=== PATIENT | female | born 1960 | race African-American/Black ===

== ENCOUNTER → 2017-04-01 | Outpatient (CLI) | payer MEDICARE, MEDICAID ==
--- NOTE | 2017-04-01 15:11 | WOMENS IMAGING REPORT ---
EXAM DESCRIPTION: BILAT SCREENING MAMMO W/CAD COMPLETED DATE/TIME: 04/01/2017 9:46 am REASON FOR STUDY: SCREENING MAMMO Z12.31 ENCNTR SCREEN MAMMOGRAM FOR MALIGNANT NEOPLASM OF MICHELLE COMPARISON: Multiple since 2008 TECHNIQUE: Standard craniocaudal and mediolateral oblique views of each breast recorded using digita l acquisition. LIMITATIONS: None. FINDINGS: Findings present which are benign by mammographic criteria. No suspicious masses, calcifi cations or architectural distortion. Pertinent benign findings: Since the prior mammograms here in 2013, patient has undergone bilateral b reast reduction surgery. There are postoperative changes bilaterally with multiple dystrophic calcif ications from fat necrosis. Read with the assistance of CAD. .[facility] - R2 Cenova Version 1.3 .[facility] Imaging - R2 Cenova Version 1.3 .[facility] - R2 Cenova Version 2.4 .[facility] - R2 Cenova Version 2.4 .[facility] - R2 Portable Router Operator Version 9.2 Benign mammographic findings may include one or more of the following: Smooth masses, popcorn/rim/co arse calcifications, asymmetries, post-procedure changes, and lesions with long-standing stability. IMPRESSION: BENIGN MAMMOGRAPHIC FINDINGS. BIRADS 2 BREAST DENSITY: c. The breasts are heterogeneously dense, which may obscure small masses. BIRAD: 2 BENIGN FINDING(S) RECOMMENDATION: ROUTINE SCREENING Please consider bilateral screening tomosynthesis in March 2018 given heterogeneously dense tissu e. COMMENT: The patient has been notified of the results by letter per SA requirements. Additional no tification policies are in place for contacting patient with suspicious or incomplete findings. Quality ID #[id number]: The [employer] recommends an annual screening mammogram for women aged 40 years or over. This facility utilizes a reminder system to ensure that all patients receive reminder letters, and/or direct phone calls for appointments. This includes reminders for routine scr eening mammograms, diagnostic mammograms, or other Breast Imaging Interventions when appropriate. Th is patient will be placed in the appropriate reminder system. The [employer] (ACR) has developed recommendations for screening MRI of the breast s in certain patient populations, to be used in conjunction with mammography. Breast MRI surveillanc e may be appropriate for women with more than 20% lifetime risk of developing breast cancer as deter mined by genetic testing, significant family history of the disease, or history of mantle radiation f or Hodgkins Disease. ACR Practice Guidelines 2008. TECHNICAL DOCUMENTATION: FINDING NUMBER: (1) ASSESSMENT: (1) JOB ID: [id number] [employer]- All Rights Reserved
== END ==
LOC: WI 09:29
PROVIDERS: ATTEND Family Medicine
DX: Z12.31 Encounter for screening mammogram for malignant neoplasm of breast (principal)
CPT/HCPCS: 77067; G0202

== ENCOUNTER 2017-06-20 10:35 | Emergency (ER) | payer MEDICARE, MEDICAID ==
--- NOTE | 2017-06-20 11:27 | ER Document Report ---
ED Medical Screen (RME) - General Chief Complaint: Leg Pain Stated Complaint: ABDOMINAL PAIN Time Seen by Provider: 06/20/17 11:25 Notes: Approximately 3 days ago patient had her eighth cardiac stent placed. She went to her doctor, Dr. Jones, today with chest pain as well as right leg paresthesias and tightness. Dr. Jones referred the patient to the emergency department for further evaluation and ultrasound of lower extremity. TRAVEL OUTSIDE OF THE [place] IN LAST 30 DAYS: No - Related Data Allergies/Adverse Reactions: Sulfa (Sulfonamide Antibiotics) Allergy (Verified 06/20/17 11:12) Home Medications: Current Home Medications Atorvastatin Calcium 40 mg PO DAILY 06/20/17 [History] Cyclobenzaprine HCl 1 tab PO DAILY 06/20/17 [History] Ibuprofen 1 tab PO DAILY 06/20/17 [History] Isosorbide Mononitrate [Isosorbide Mononitrate ER] 1 tab PO DAILY 06/20/17 [ History] Linaclotide [Linzess] 1 cap PO DAILY 06/20/17 [History] Lisinopril [Prinivil 5 mg Tablet] 1 tab PO DAILY 06/20/17 [History] Metoprolol Succinate 1 tab PO DAILY 06/20/17 [History] Nitroglycerin [Nitroglycerin] 1 tab SL TID PRN 06/20/17 [History] Pantoprazole Sodium 1 tab PO DAILY 06/20/17 [History] Ranolazine [Ranexa 500 mg Tab.sr] 1 tab PO DAILY 06/20/17 [History] Trazodone HCl 1 tab PO DAILY 06/20/17 [History] Past Medical History - Past Medical History Cardiac Medical History: Reports: Hx Heart Attack - 1983, Hx Hypercholesterolemia, Hx Hypertension Pulmonary Medical History: Reports: Hx Asthma Denies: Hx Tuberculosis GI Medical History: Reports: Hx Gastroesophageal Reflux Disease Musculoskeltal Medical History: Reports Hx Arthritis Psychiatric Medical History: Reports: Hx Depression Past Surgical History: Reports: Hx Abdominal Surgery - intestinal, Hx Section, Hx Cholecystectomy, Hx Tubal Ligation. Denies: Hx Pacemaker - Immunizations Hx Diphtheria, Pertussis, Tetanus Vaccination: Yes Physical Exam - Vital signs Vitals: Temp Pulse Resp BP Pulse Ox 98.6 F 65 15 141/60 H 97 06/20/17 10:43 06/20/17 10:43 06/20/17 10:43 06/20/17 10:43 06/20/17 10:43 Course - Vital Signs Vital signs: Temp Pulse Resp BP Pulse Ox 98.6 F 65 15 141/60 H 97 06/20/17 10:43 06/20/17 10:43 06/20/17 10:43 06/20/17 10:43 06/20/17 10:43
[2017-06-20 12:22] LABS: ABSOLUTE BASOPHILS # (AUTO) 0.1 10^3/uL (0.0-0.2); ABSOLUTE EOSINOPHILS # (AUTO) 0.1 10^3/uL (0.0-0.6); ABSOLUTE LYMPHOCYTES (AUTO) 1.4 10^3/uL (0.5-4.7); ABSOLUTE MONOCYTES (AUTO) 0.4 10^3/uL (0.1-1.4); ABSOLUTE NEUT (AUTO) 2.6 10^3/uL (1.7-8.2); BASOPHILS % (AUTO) 1.3 % (0-2); EOSINOPHILS % (AUTO) 2.3 % (0-6); HEMATOCRIT 35.5 % (36.0-47.0); HGB HCT DIFFERENCE 0.5; LYMPHOCYTES % (AUTO) 31.1 % (13-45); MEAN CORPUSCULAR HEMOGLOBIN 31.4 pg (27.0-33.4); MEAN CORPUSCULAR HGB CONC 33.9 g/dL (32.0-36.0); MEAN CORPUSCULAR VOLUME 93 fl (80-97); MONOCYTES % (AUTO) 7.9 % (3-13); RED BLOOD COUNT 3.84 10^6/uL (3.72-5.28); RED CELL DISTRIBUTION WIDTH 14.2 % (11.5-14.0); SEGMENTED NEUTROPHILS % (AUTO) 57.4 % (42-78); WHITE BLOOD COUNT 4.5 10^3/uL (4.0-10.5)
[2017-06-20 12:42] LABS: ALANINE AMINOTRANSFERASE 27 U/L (9-52); ALBUMIN 4.5 g/dL (3.5-5.0); ALKALINE PHOSPHATASE 104 U/L (38-126); ANION GAP 12 (5-19); ASPARTATE AMINO TRANSFERASE 22 U/L (14-36); BILIRUBIN,DIRECT 0.1 mg/dL (0.0-0.4); BILIRUBIN,TOTAL 0.5 mg/dL (0.2-1.3); BLOOD UREA NITROGEN 10 mg/dL (7-20); CALCIUM 9.6 mg/dL (8.4-10.2); CARBON DIOXIDE 29 mmol/L (22-30); CHLORIDE 105 mmol/L (98-107); CREATININE RESULT 0.85 mg/dL (0.52-1.25); GLUCOSE 88 mg/dL (75-110); POTASSIUM 4.2 mmol/L (3.6-5.0); SODIUM 146.4 mmol/L (137-145)
--- NOTE | 2017-06-20 13:02 | EKG REPORT ---
SEVERITY:- ABNORMAL ECG - SINUS RHYTHM FIRST DEGREE AV BLOCK : Confirmed by: Wing Scott MD 20-Jun-2017 13:01:35
[2017-06-20 14:41] LABS: PROTHROMBIN TIME 13.5 SEC (11.4-15.4)
--- NOTE | 2017-06-20 15:02 | RADIOLOGY REPORT (SQ) ---
EXAM DESCRIPTION: CHEST PA/LAT COMPLETED DATE/TIME: 06/20/2017 2:37 pm REASON FOR STUDY: chest pain COMPARISON: 04/25/2014 EXAM PARAMETERS: NUMBER OF VIEWS: two views TECHNIQUE: Digital Frontal and Lateral radiographic views of the chest acquired. RADIATION DOSE: NA LIMITATIONS: none FINDINGS: LUNGS AND PLEURA: No opacities, masses or pneumothorax. No pleural effusion. MEDIASTINUM AND HILAR STRUCTURES: No masses or contour abnormalities. HEART AND VASCULAR STRUCTURES: Heart normal size. No evidence for failure. BONES: No acute findings. HARDWARE: None in the chest. OTHER: No other significant finding. IMPRESSION: NO SIGNIFICANT RADIOGRAPHIC FINDING IN THE CHEST. TECHNICAL DOCUMENTATION: JOB ID: [id number] [employer]- All Rights Reserved
--- NOTE | 2017-06-20 15:24 | ER Document Report ---
ED General - General Chief Complaint: Leg Pain Stated Complaint: ABDOMINAL PAIN Time Seen by Provider: 06/20/17 11:25 Mode of Arrival: Ambulatory Information source: Patient, Relative TRAVEL OUTSIDE OF THE [place] IN LAST 30 DAYS: No - HPI Patient complains to provider of: Multiple complaints including right leg is cold, left chest pain, sob Onset: Other - Since the stent was placed Tuesday at [facility] Onset/Duration: Constant Quality of pain: Dull Severity: Moderate Associated symptoms: Chest pain, Headache, Shortness of breath. denies: Body/ muscle aches, Chills, Nonproductive cough, Productive cough, Diarrhea, Drooling , Fever, Hurts to breath, Nausea, Vomiting Exacerbated by: Movement Relieved by: Remaining still Similar symptoms previously: No Recently seen / treated by doctor: No Notes: 56-year-old -Stateless female presents the emergency department sent over from [facility] [place]. Due to the patient she had went in for an EP study at [facility] on Tuesday and ended up with a cardiac catheterization as well as a stent placed placement. Patient states she has not really sure exactly what happens as she does not know where the stent was placed. Patient states Tuesday a.m. at 5:00 she left AMA without paperwork. She has not taken any medication since then because she did not know what she was supposed to be on. Prior to going into [facility] patient was on 14 medications including lisinopril Nitrostat metoprolol Ranexa and atorvastatin. Patient states shortly after the stent placement she developed left shoulder and chest pain that feels like pressure. She is short of breath with exertion. She also states that her right lower extremity feels cold. It is not heavy or numb. She has no right low back pain. Patient currently and since stent placement has not taken any of her medications. - Related Data Allergies/Adverse Reactions: Sulfa (Sulfonamide Antibiotics) Allergy (Verified 06/20/17 11:12) Dye used in chemical stress test Allergy (Uncoded 06/20/17 13:00) Home Medications: Current Home Medications Atorvastatin Calcium 40 mg PO DAILY 06/20/17 [History] Cyclobenzaprine HCl 1 tab PO DAILY 06/20/17 [History] Ibuprofen 1 tab PO DAILY 06/20/17 [History] Isosorbide Mononitrate [Isosorbide Mononitrate ER] 1 tab PO DAILY 06/20/17 [ History] Linaclotide [Linzess] 1 cap PO DAILY 06/20/17 [History] Lisinopril [Prinivil 5 mg Tablet] 1 tab PO DAILY 06/20/17 [History] Metoprolol Succinate 1 tab PO DAILY 06/20/17 [History] Nitroglycerin [Nitroglycerin] 1 tab SL TID PRN 06/20/17 [History] Pantoprazole Sodium 1 tab PO DAILY 06/20/17 [History] Ranolazine [Ranexa 500 mg Tab.sr] 1 tab PO DAILY 06/20/17 [History] Trazodone HCl 1 tab PO DAILY 06/20/17 [History] Past Medical History - General Information source: Patient, Relative - Social History Smoking Status: Current Some Day Smoker Cigarette use (# per day): Yes Chew tobacco use (# tins/day): No Smoking Education Provided: Yes Frequency of alcohol use: Occasional Drug Abuse: None Lives with: Family Family History: DM, Hypertension, Other - Sulfa allergy Patient has suicidal ideation: No Patient has homicidal ideation: No - Past Medical History Cardiac Medical History: Reports: Hx Heart Attack - 1983, Hx Hypercholesterolemia, Hx Hypertension Pulmonary Medical History: Reports: Hx Asthma Denies: Hx Tuberculosis EENT Medical History: Reports: None Neurological Medical History: Reports: None Endocrine Medical History: Reports: None Renal/ Medical History: Reports: None. Denies: Hx Peritoneal Dialysis Malignancy Medical History: Reports: None GI Medical History: Reports: Hx Gastroesophageal Reflux Disease Musculoskeltal Medical History: Reports Hx Arthritis Psychiatric Medical History: Reports: Hx Depression Past Surgical History: Reports: Hx Abdominal Surgery - intestinal, Hx Section, Hx Cholecystectomy, Hx Tubal Ligation. Denies: Hx Pacemaker - Immunizations Hx Diphtheria, Pertussis, Tetanus Vaccination: Yes History of Influenza Vaccine for 04/2017 - 09/2017 Season: No Hx Pneumococcal Vaccination: 07/04/10 Review of Systems - Review of Systems Constitutional: No symptoms reported EENT: No symptoms reported Cardiovascular: See HPI Respiratory: See HPI Gastrointestinal: No symptoms reported Genitourinary: No symptoms reported Female Genitourinary: No symptoms reported Musculoskeletal: No symptoms reported Skin: See HPI Hematologic/Lymphatic: No symptoms reported Neurological/Psychological: No symptoms reported Physical Exam - Vital signs Vitals: Temp Pulse Resp BP Pulse Ox 98.6 F 65 15 141/60 H 97 06/20/17 10:43 06/20/17 10:43 06/20/17 10:43 06/20/17 10:43 06/20/17 10:43 - Notes Notes: PHYSICAL EXAMINATION: GENERAL: Well-appearing, well-nourished and in no acute distress. HEAD: Atraumatic, normocephalic. EYES: Pupils equal round and reactive to light, extraocular movements intact, conjunctiva are normal. ENT: Nares patent, oropharynx clear without exudates. Moist mucous membranes. NECK: Normal range of motion, supple without lymphadenopathy LUNGS: Breath sounds clear to auscultation bilaterally and equal. No wheezes rales or rhonchi. HEART: Regular rate and rhythm ABDOMEN: Soft, nontender, nondistended abdomen. No guarding, no rebound. No masses appreciated. Female : deferred Musculoskeletal: Normal range of motion, no pitting or edema. No cyanosis. +2 femoral pulses bilaterally. Lower extremity is mildly colds but is the same temperature as the left lower extremity. 5/5 strength bilateral lower extremities. No calf tenderness bilaterally. NEUROLOGICAL: Cranial nerves grossly intact. Normal speech, normal gait. Normal sensory, motor exams. PSYCH: Normal mood, normal affect. SKIN: Warm, Dry, normal turgor, no rashes or lesions noted. Course - Re-evaluation Re-evalutation: 06/20/17 17:48 I am still awaiting paperwork from [facility] regarding patient's discharge status post stent. I faxed paperwork twice requesting this. 06/20/17 18:25 I did go into the talked with the patient and her family. I reviewed all the illogical results. I did tell her we are still trying to get in touch with [facility]. They are starting to fax this information. My plan is to review the information they send me. If it does not have any discharge medications on it, I will call the cardiology team who performed a stent placement to find out with the patient was supposed to be discharged home on. Patient states she is starving I did put in for a food tray on her. Right lower extremity continues to be warm and neurovascularly intact. I did tell the patient that she had no blood clot in that right lower extremity. I also told her that clinical exam was not consistent with an arterial blockage. I did tell her that this is a risk status post cardiac catheterization and if her legs were to turn cold, become painful, change color or any other concerns she is to return to the emergency department immediately. 06/20/17 18:51 I did get the paperwork from [facility]. I brought it. It appears that the patient was supposed to be discharged on Plavix. She states that she did not get any discharge information nor any prescriptions. I did look at her medical list and [facility] I do not see where she was on Plavix. Also it states that [facility] discharged her Norvasc is not on her current medical list from [facility]. I did call [facility] they are closed and there is no further information to reach somebody business continuity coordinator. I told her I would write her for the Plavix but to make sure she was not on it already. If she was she is not to double the dose. I did tell her also that she would have to discuss Norvasc with her web specialist at [facility] because I do not see that she is currently on it. Patient is to take the discharge summary from [facility] that I gave her to [facility]. I told her make an appointment in the next 2 days. She is to return to the emergency department immediately if she gets coldness in her right leg, pain in the right leg, change in color or any other concerns. Multiple sons and daughters were in the room and I did go over it with them as well. All questions were answered. Patient left here in stable condition. She was given a Plavix before she left. 06/20/17 19:02 Patient had a right ostial stent placed 06/20/17 19:11 Patient's troponin is elevated at 0.3. I tried to find a troponin from [facility] however it is not in the transfer papers. I did put a call into Dr. Agosto the web specialist who did the interventional procedure. I am awaiting callback from his team. In the meantime I will repeat a troponin here just to make sure it is on a down trend and not increasing. Patient is aware and agreeable. 06/20/17 19:20 Dr. Agosto's partner from [facility] to call me back. He states that they did not do a troponin. Patient was taken for an elective cardiac cath and they found a blockage and placed a stent. He does agree that the troponin would be elevated after procedure. He agrees with repeating it and if it is trending down the patient be discharged home. 06/20/17 19:59 Repeated troponin did trend down. Patient will be discharged in stable condition. I did encourage her to follow-up with Dr. Agosto at [facility] as well as her doctor at [facility]. - Vital Signs Vital signs: Temp Pulse Resp BP Pulse Ox 98.6 F 65 11 L 148/61 H 93 06/20/17 10:43 06/20/17 10:43 06/20/17 19:07 06/20/17 19:07 06/20/17 19:07 - Laboratory Result Diagrams: 06/20/17 12:10 06/20/17 12:10 Laboratory results interpreted by me: 06/20/17 06/20/17 12:10 12:10 Hct 35.5 L RDW 14.2 H Sodium 146.4 H - Diagnostic Test Radiology reviewed: Image reviewed, Reports reviewed Radiology results interpreted by me: 06/20/17 15:27 No acute findings chest x-ray. No DVT ultrasound right lower extremity. 06/20/17 17:49 - EKG Interpretation by Ne EKG shows normal: Sinus rhythm Rate: Normal Rhythm: NSR Heart block present: 1st Degree When compared to previous EKG there are: No significant change Critical Care Note - Critical Care Note Total time excluding time spent on procedures (mins): 60 Comments: Please put critical care time is 60 minutes for reassessment of the patient, review of old medical records from [facility] including discharge summary, cardiac catheterization results and other information that was pertinent. I also called [facility] twice but there was no answer no forwarding number. Discussion with the family for 30 minutes in total regarding history taking, review of results, review of medical care at [facility], discharge plan including Plavix and answering all questions. Discharge - Discharge Clinical Impression: Medical non-compliance, Status post insertion of drug-eluting stent into right coronary artery for coronary artery disease, Chest pain Condition: Stable Disposition: HOME, SELF-CARE Instructions: Chest Pain of Unclear Cause ([facility]) Additional Instructions: Plesase follow up with dr. Agosto at [facility] as discussed. Discussed with your web specialist at [facility] the medication she should be taking at home. Continue Plavix 75 mg by mouth daily and discussed with Dr. Agosto at [facility] when this should be discontinued. Emergency department immediately if your right leg turns cold, you have pain in that leg, decreased strength or any other concerns. Prescriptions: Clopidogrel Bisulfate [Plavix 75 mg Tablet] 75 mg PO DAILY #30 tablet Referrals: [facility] [Provider Group] - Follow up tomorrow
--- NOTE | 2017-06-20 15:38 | XCELERA REPORT ---
[address] [address] Lower Extremity Venous Evaluation Name: HALLEY GALVAN Age: 56 yrs Gender: Female : 1960 Patient Status: Emergency Patient Location: ER Study Date: 06/20/2017 01:35 PM Procedure: Color flow and duplex imaging of the veins of the right lower extremity as well as the left Common Femoral vein. Reason For Study: right leg tightness, parathesisas, recent cath Ordering Physician: BRUNA FERNANDO Performed By: Honey Garsia Right Sided Venous Evaluation Venous reflux noted in the Greater Saphenous vein in the mid thigh. Otherwise normal vessel filling wall to wall, compression and augmentation as well as Colour flow down to the infrageniculate veins. Left Sided Venous Evaluation The left common femoral vein is fully compressible. Spontaneous and phasic flow is present in the left common femoral vein. Interpretation Summary No duplex evidence of DVT or obstruction in the right lower extremity nor in the left Common Femoral vein. Venous reflux as noted. : BRUNA FERNANDO > Alvin Figueroa
--- NOTE | 2017-06-20 16:20 | RADIOLOGY REPORT (SQ) ---
EXAM DESCRIPTION: CTA CHEST COMPLETED DATE/TIME: 06/20/2017 3:57 pm REASON FOR STUDY: Sob/cardiac stent 3 days ago/no anticoag COMPARISON: 04/25/2014 and 10/07/2011. TECHNIQUE: CT scan of the chest performed using helical scanning technique with dynamic intravenous contrast injection. Images reviewed with lung, soft tissue and bone windows. Reconstructed coronal and sagittal MPR images reviewed. Additional 3 dimensional post-processing performed to develop Maximal Intensity Projection images (PR P). All images stored on PACS. All CT scanners at this facility use dose modulation, iterative reconstruction, and/or weight based d osing when appropriate to reduce radiation dose to as low as reasonably achievable (ALARA). [facility]: Dose Right [facility]: CareDose [facility]: Dose Right [facility]: Teradose 4D [facility]: Mirror Digital CONTRAST TYPE AND DOSE: contrast/concentration: Isovue 370.00 mg/ml; Total Contrast Delivered: 77.0 ml; Total Saline Delivered: 75.0 ml Contrast bolus optimized for the pulmonary arteries. Not diagnostic for the aorta. RENAL FUNCTION: BUN 10 creatinine 0.85. RADIATION DOSE: CT Rad equipment meets quality standard of care and radiation dose reduction techniq ues were employed. CTDIvol: 22.0 - 33.1 mGy. DLP: 842 mGy-cm. . LIMITATIONS: None. FINDINGS: LUNGS AND PLEURA: 4 mm nodule in the right lung base (series 4, image 81) unchanged from p rior study. No masses, infiltrates, pneumothorax. No pleural effusions, calcifications. AORTA AND GREAT VESSELS: No aneurysm. Contrast bolus not optimized for the aorta. HEART: No pericardial effusion. No significant coronary artery calcifications. PULMONARY ARTERIES: No emboli visualized in the main pulmonary arteries or the segmental branches. HILAR AND MEDIASTINAL STRUCTURES: No identified masses or abnormal nodes. HARDWARE: None in the chest. UPPER ABDOMEN: No significant findings. Limited exam. THYROID AND OTHER SOFT TISSUES: No masses. No adenopathy. BONES: No acute or significant finding. 3D MIPS: Confirm above findings. OTHER: No other significant finding. IMPRESSION: NORMAL CTA OF THE CHEST. NO PULMONARY EMBOLI. 4 MM NODULE IN THE RIGHT LUNG BASE IS STABLE AND UNCHANGED SINCE OCTOBER 2011. NO OTHER SIGNIFICANT FI NDINGS. COMMENT: Quality ID # [id number]: Final reports with documentation of one or more dose reduction techniques (e.g., Automated exposure control, adjustment of the mA and/or kV according to patient size, use of iterative reconstruction technique) TECHNICAL DOCUMENTATION: JOB ID: [id number] [employer]- All Rights Reserved
[2017-06-20] MEDS ORDERED: CLOPIDOGREL BISULFATE 75 MG TABLET PO ONE (18:43)
[2017-06-20 20:12] VITALS: BP 123/81
== END 2017-06-20 20:12 | disposition home or self-care (01) ==
LOC: ER 10:35
DX: R07.89 Other chest pain (principal); M25.512 Pain in left shoulder; R06.02 Shortness of breath; R51 Headache; I44.0 Atrioventricular block, first degree; I25.2 Old myocardial infarction; I10 Essential (primary) hypertension; J45.909 Unspecified asthma, uncomplicated; F17.210 Nicotine dependence, cigarettes, uncomplicated; Z91.14 Patient's other noncompliance with medication regimen; Z95.5 Presence of coronary angioplasty implant and graft; Z88.2 Allergy status to sulfonamides; Z91.041 Radiographic dye allergy status
CPT/HCPCS: 93005; 99285; 36415; 85025; 85610; 80053; 84484; 93971 ×2; 71020; 71275; 93010; A9270

== ENCOUNTER 2017-09-12 20:47 | Emergency (ER) | payer MEDICARE, MEDICAID ==
[2017-09-12 22:18] LABS: ABSOLUTE EOSINOPHILS # (AUTO) 0.1 10^3/uL (0.0-0.6); ABSOLUTE LYMPHOCYTES (AUTO) 1.8 10^3/uL (0.5-4.7); ABSOLUTE MONOCYTES (AUTO) 0.5 10^3/uL (0.1-1.4); ABSOLUTE NEUT (AUTO) 3.6 10^3/uL (1.7-8.2); BASOPHILS % (AUTO) 0.6 % (0-2); EOSINOPHILS % (AUTO) 1.8 % (0-6); HEMATOCRIT 33.8 % (36.0-47.0); HEMOGLOBIN 11.1 g/dL (12.0-15.5); LYMPHOCYTES % (AUTO) 30.1 % (13-45); MEAN CORPUSCULAR HGB CONC 32.9 g/dL (32.0-36.0); MEAN CORPUSCULAR VOLUME 94 fl (80-97); MONOCYTES % (AUTO) 8.7 % (3-13); PLATELET COUNT 260 10^3/uL (150-450); RED BLOOD COUNT 3.58 10^6/uL (3.72-5.28); RED CELL DISTRIBUTION WIDTH 14.4 % (11.5-14.0); SEGMENTED NEUTROPHILS % (AUTO) 58.8 % (42-78); TOTAL CELLS COUNTED % (AUTO) 100 %; WHITE BLOOD COUNT 6.1 10^3/uL (4.0-10.5)
[2017-09-12 22:31] LABS: ALANINE AMINOTRANSFERASE 24 U/L (9-52); ALBUMIN 4.4 g/dL (3.5-5.0); ALKALINE PHOSPHATASE 106 U/L (38-126); ANION GAP 10 (5-19); ASPARTATE AMINO TRANSFERASE 19 U/L (14-36); BILIRUBIN,DIRECT 0.2 mg/dL (0.0-0.4); BILIRUBIN,TOTAL 0.2 mg/dL (0.2-1.3); BLOOD UREA NITROGEN 13 mg/dL (7-20); CALCIUM 9.4 mg/dL (8.4-10.2); CARBON DIOXIDE 28 mmol/L (22-30); CHLORIDE 105 mmol/L (98-107); GLUCOSE 99 mg/dL (75-110); POTASSIUM 4.1 mmol/L (3.6-5.0); SODIUM 143.3 mmol/L (137-145); TOTAL PROTEIN 7.6 g/dL (6.3-8.2)
[2017-09-12 22:41] LABS: CREATINE KINASE MB 0.35 ng/mL (<4.55)
[2017-09-12 22:44] LABS: TROPONIN I < 0.012 ng/mL
--- NOTE | 2017-09-12 23:27 | RADIOLOGY REPORT (SQ) ---
EXAM DESCRIPTION: CHEST PA/LAT CLINICAL HISTORY: 56 years, Female, chest pain COMPARISON: 12.18.17 NUMBER OF VIEWS: 2 LIMITATIONS: None. FINDINGS: Normal lung volume, clear parenchyma, normal cardiac silhouette, and intact bony thorax. Clips of the left upper abdominal quadrant. IMPRESSION: No acute cardiopulmonary findings.
[2017-09-13] MEDS ORDERED: FENTANYL CITRATE INJ/PF 100 MCG/2 ML AMPUL IV ONE (00:44)
[2017-09-13] MEDS ORDERED: ONDANSETRON HCL INJ/PF 4 MG/2 ML SDV IV ONE (00:44)
--- NOTE | 2017-09-13 00:44 | ER Document Report ---
ED General - General Chief Complaint: Epigastric Pain Stated Complaint: ABDOMNAL PAIN Time Seen by Provider: 09/13/17 00:33 Notes: Patient is a 56-year-old female who comes emergency department for chief complaint of pain in her upper abdomen for the past 3 days. She states she feels bloated, she states she feels like every time she eats she gets bigger, she states that the pain has become sharp and very painful. She denies nausea or vomiting. She has had 2 bowel movements within the past 24 hours, nonbloody. She states she was supposed to get a CAT scan evaluation recently but this was postponed. She has had 75% of her large intestine removed reportedly, this was because of bowel obstructions. She denies fever or chills , pain in her chest, shortness of breath. Other medical history includes CAD with stents, on aspirin and Plavix. She also takes Linzess and lactulose, sees gastroenterology Dr. Bush. TRAVEL OUTSIDE OF THE [place] IN LAST 30 DAYS: No - Related Data Allergies/Adverse Reactions: Sulfa (Sulfonamide Antibiotics) Allergy (Verified 06/20/17 11:12) Dye used in chemical stress test Allergy (Uncoded 06/20/17 13:00) Past Medical History - General Information source: Patient - Social History Smoking Status: Current Some Day Smoker Chew tobacco use (# tins/day): No Frequency of alcohol use: None Drug Abuse: None Lives with: Family Family History: DM, Hypertension, Other - Sulfa allergy Patient has suicidal ideation: No Patient has homicidal ideation: No - Past Medical History Cardiac Medical History: Reports: Hx Heart Attack - 1983, Hx Hypercholesterolemia, Hx Hypertension Pulmonary Medical History: Reports: Hx Asthma Denies: Hx Tuberculosis Renal/ Medical History: Denies: Hx Peritoneal Dialysis GI Medical History: Reports: Hx Gastroesophageal Reflux Disease Musculoskeltal Medical History: Reports Hx Arthritis Psychiatric Medical History: Reports: Hx Depression Past Surgical History: Reports: Hx Abdominal Surgery - intestinal, Hx Section, Hx Cholecystectomy, Hx Tubal Ligation. Denies: Hx Pacemaker - Immunizations Hx Diphtheria, Pertussis, Tetanus Vaccination: Yes Hx Pneumococcal Vaccination: 07/04/10 Review of Systems - Review of Systems Constitutional: No symptoms reported EENT: No symptoms reported Cardiovascular: No symptoms reported Respiratory: No symptoms reported Gastrointestinal: See HPI Genitourinary: No symptoms reported Female Genitourinary: No symptoms reported Musculoskeletal: No symptoms reported Skin: No symptoms reported Hematologic/Lymphatic: No symptoms reported Neurological/Psychological: No symptoms reported Physical Exam - Vital signs Vitals: Temp Pulse Resp BP Pulse Ox 98.4 F 73 17 141/62 H 100 09/12/17 20:54 09/12/17 20:54 09/12/17 20:54 09/12/17 20:54 09/12/17 20:54 - General General appearance: Appears well In distress: None - HEENT Head: Normocephalic, Atraumatic Eyes: Normal Conjunctiva: Normal Extraocular movements intact: Yes Eyelashes: Normal Pupils: PERRL Mouth/Lips: Normal Mucous membranes: Normal Pharynx: Normal Neck: Normal - Respiratory Respiratory status: No respiratory distress Breath sounds: Normal. No: Decreased air movement, Wheezing - Cardiovascular Rhythm: Regular. No: Tachycardia Heart sounds: Normal auscultation, S1 appreciated, S2 appreciated Murmur: No Normal capillary refill: Yes - Abdominal Distension: Distended Tenderness: Tender - Generalized mild abdominal tenderness, nonspecific, no guarding - Back Back: Normal, Nontender. No: Tender - Extremities General upper extremity: Normal inspection, Nontender, Normal strength, Normal temperature General lower extremity: Normal inspection, Nontender, Normal strength, Normal temperature. 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 She is complaining of pain but she does not appear to be in distress. No tachycardia, hypoxia, hypotension, or fever. CBC does not show leukocytosis, chemistry, lipase, urine are unremarkable. Troponin is not elevated. Discussed with patient. She states she is still having pain, because of multiple abdominal surgeries, her missing a CAT scan she was supposed to have, patient will be evaluated with a CAT scan with oral and IV contrast. CAT scan does not show any acute abnormalities, findings were discussed with patient. Patient still complaining of bloating and pain, per my read she does have stool coming from the rectum all the way up into the colon with some moderate retention. After discussion patient wanting to have to an enema. Enema was performed, patient actually had excellent results with large amount of stool, decreased distention and discomfort. Patient states is ready to go home. Discussed follow-up, discussed return precautions, patient states understanding and agreement. - Vital Signs Vital signs: Temp Pulse Resp BP Pulse Ox 97.9 F 73 18 142/72 H 99 09/13/17 05:01 09/12/17 20:54 09/13/17 04:01 09/13/17 04:01 09/13/17 04:01 - Laboratory Result Diagrams: 09/12/17 22:00 09/12/17 22:00 Laboratory results interpreted by me: 09/12/17 22:00 RBC 3.58 L Hgb 11.1 L Hct 33.8 L RDW 14.4 H Discharge - Discharge Clinical Impression: Abdominal pain Qualifiers: Abdominal location: generalized Qualified Code(s): R10.84 - Generalized abdominal pain Condition: Stable Disposition: HOME, SELF-CARE Additional Instructions: Your workup does not show any concerning abnormalities. CAT scan shows adhesions, retained stool, no obvious concerning abnormalities. Follow-up with your cable systems installer for additional evaluation and management. Return if you worsen including vomiting, fever, returned or severe pain, bloody bowel movements, or any other concerning symptoms. Forms: Treatment of Relative/Child Referrals: HARRIETT RICK MD [Primary Care Provider] - Follow up as needed
--- NOTE | 2017-09-13 03:15 | RADIOLOGY REPORT (SQ) ---
EXAM DESCRIPTION: CT ABD/PELVIS WITH IV ORAL CLINICAL HISTORY: 56 years Female, sharp mid abd pain, hx bowel surgery COMPARISON: 04/25/2014. CT chest 06/20/2017 TECHNIQUE: 100 mL Isovue-370 IV and oral contrast. Coronal and sagittal reformat. This exam was performed according to our departmental dose-optimization program, which includes automated exposure control, adjustment of the mA and/or kV according to patient size and/or use of iterative reconstruction technique. FINDINGS: No acute findings. No free fluid. Bowel is closely positioned with anterior peritoneum, a nonspecific finding; cannot also be associated with adhesive disease. Left upper abdominal clips. Mild disc desiccation. 0.3 cm degenerative L4 anterolisthesis. Moderate L4-L5 spondylosis. Coronary artery calcification-stenting. Stable 0.9 cm prominent midabdominal mesenteric lymph node. Inferior thorax, liver, gallbladder, pancreas, spleen, adrenals, renal system, gastrointestinal tract, pelvic organs, lymphatics, vasculature, and musculoskeleton appear otherwise unremarkable. IMPRESSION: No acute findings.
[2017-09-13] MEDS ORDERED: MINERAL OIL 30 ML UDCUP PR ONE (03:42)
[2017-09-13 05:01] VITALS: BP 142/72
--- NOTE | 2017-09-13 07:27 | EKG REPORT ---
SEVERITY:- ABNORMAL ECG - SINUS RHYTHM FIRST DEGREE AV BLOCK : Confirmed by: Wing Scott MD 13-Sep-2017 07:26:57
== END 2017-09-13 05:02 | disposition home or self-care (01) ==
LOC: ER 20:47
DX: R10.84 Generalized abdominal pain (principal); R10.13 Epigastric pain; R10.10 Upper abdominal pain, unspecified; R14.0 Abdominal distension (gaseous); I25.10 Atherosclerotic heart disease of native coronary artery without angina pectoris; I25.2 Old myocardial infarction; E78.00 Pure hypercholesterolemia, unspecified; I10 Essential (primary) hypertension; Z79.02 Long term (current) use of antithrombotics/antiplatelets; Z90.49 Acquired absence of other specified parts of digestive tract; Z79.899 Other long term (current) drug therapy; F17.200 Nicotine dependence, unspecified, uncomplicated
CPT/HCPCS: 93005; 99285; 96374; 96375; 36415; 82553; 83690; 85025; 80053; 84484; 71046; 74177; 93010; J3010; J3490; J2405

== ENCOUNTER → 2017-09-26 | Outpatient (CLI) | payer MEDICARE, MEDICAID ==
--- NOTE | 2017-09-26 12:40 | RADIOLOGY REPORT (SQ) ---
EXAM DESCRIPTION: U/S THYROID/SFT TISS HD NECK COMPLETED DATE/TIME: 09/26/2017 10:43 am REASON FOR STUDY: ABN RESULTS OF THYROID FUNCTION TEST R94.6 ABNORMAL RESULTS OF THYROID FUNCTION S TUDIES COMPARISON: None. TECHNIQUE: Dynamic and static berg-scale images acquired of the thyroid gland. Selected additional c olor/power Doppler images recorded. All images stored to PACS. LIMITATIONS: None. FINDINGS: RIGHT LOBE: Normal size. Homogeneous echotexture. 7 mm hypoechoic nodule. LEFT LOBE: Normal size. Homogeneous echotexture. No cystic or solid masses. ISTHMUS: Normal size. Homogeneous echotexture. No cystic or solid masses. OTHER: No other significant finding. IMPRESSION: 7 mm solid nodule right lobe. TECHNICAL DOCUMENTATION: JOB ID: [id number] [employer]- All Rights Reserved Reading location - IP/workstation name: [email or web address]
== END ==
LOC: RAD 09:31
PROVIDERS: ATTEND Physician Assistant
DX: E04.1 Nontoxic single thyroid nodule (principal); R94.6 Abnormal results of thyroid function studies
CPT/HCPCS: 76536

== ENCOUNTER → 2017-10-31 | Outpatient (CLI) | payer MEDICARE, MEDICAID ==
--- NOTE | 2017-10-31 12:56 | WOMENS IMAGING REPORT ---
EXAM DESCRIPTION: U/S ABDOMEN TOTAL COMPLETED DATE/TIME: 10/31/2017 11:32 am REASON FOR STUDY: EPIGASTRIC PAIN, ABDOMINAL DISTENSION R10.13 EPIGASTRIC PAIN R14.0 ABDOMINAL DIS TENSION (GASEOUS) COMPARISON: None. TECHNIQUE: Dynamic and static grayscale images acquired of the abdomen and recorded on PACS. Sinano oswaldo selected color Doppler and spectral images recorded. LIMITATIONS: None. FINDINGS: PANCREAS: No masses. Visualized pancreatic duct normal caliber. The tail was not well see n. LIVER: 14.3 cm. Normal echotexture. LIVER VASCULATURE: Normal directional flow of the main portal vein and hepatic veins. GALLBLADDER: No stones. Normal wall thickness. No pericholecystic fluid. ULTRASOUND-DETECTED THRASHER'S SIGN: Negative. INTRAHEPATIC DUCTS AND COMMON DUCT: CBD and intrahepatic ducts normal caliber. No filling defects. INFERIOR VENA CAVA: Normal flow. AORTA: Poorly seen. The midportion of the aorta is normal. RIGHT KIDNEY: Normal size, 9.5 cm. Normal echogenicity. No solid or suspicious masses. No hydr onephrosis. No calcifications. LEFT KIDNEY: Normal size, 10.8 cm. Normal echogenicity. No solid or suspicious masses. No hydr onephrosis. No calcifications. SPLEEN: Normal size, 11 cm. No solid masses. PERITONEAL AND PLEURAL SPACES: No ascites or effusions. OTHER: No other significant finding. IMPRESSION: NORMAL ABDOMINAL ULTRASOUND. TECHNICAL DOCUMENTATION: JOB ID: [id number] [employer]- All Rights Reserved Reading location - IP/workstation name: [email or web address]
== END ==
LOC: WI 08:26
PROVIDERS: ATTEND Internal Medicine Gastroenterology
DX: R10.13 Epigastric pain (principal); R14.0 Abdominal distension (gaseous)
CPT/HCPCS: 76700

== ENCOUNTER → 2017-12-02 | Outpatient (CLI) | payer MEDICARE, MEDICAID ==
--- NOTE | 2017-12-02 13:09 | RADIOLOGY REPORT (SQ) ---
EXAM DESCRIPTION: NM GASTRIC EMPTYING STUDY COMPLETED DATE/TIME: 12/02/2017 12:39 pm REASON FOR STUDY: EPIGASTRIC PAIN R10.13 EPIGASTRIC PAIN R14.0 ABDOMINAL DISTENSION (GASEOUS) COMPARISON: None. RADIONUCLIDE AND DOSE: 2 millicuries Tc-99m Sulfur Colloid. Egg salad sandwich The route of agent administration: Oral. TECHNIQUE: 10 minute serial static imaging performed at time of meal, 1 hour, 1.5 hours, 2 hours, an d 4 hours as needed. Once stomach reaches 90% emptying, the test is complete. Image intensity values plotted with respect to time with linear regression algorithm. LIMITATIONS: None. FINDINGS: Patient was observed for 4 hours. Immediate post meal serves as baseline. Gastric emptying at 60 minutes was 44.4%. Gastric emptying at 90 minutes was 58.5%. Gastric emptying at 120 minutes was 69.1% Gastric emptying at 240 minutes was 90.4%. T1/2: 71 minutes IMPRESSION: NORMAL GASTRIC EMPTYING. TECHNICAL DOCUMENTATION: JOB ID: [id number] [employer]- All Rights Reserved rev-11/18 Reading location - IP/workstation name: [email or web address]
== END ==
LOC: RAD 07:35
PROVIDERS: ATTEND Internal Medicine Gastroenterology
DX: R10.13 Epigastric pain (principal); R14.0 Abdominal distension (gaseous)
CPT/HCPCS: 78264; A9541

== ENCOUNTER → 2019-01-16 | Outpatient (CLI) | payer MEDICARE, MEDICAID ==
--- NOTE | 2019-01-16 10:37 | WOMENS IMAGING REPORT ---
EXAM DESCRIPTION: BILAT SCREENING MAMMO W/CAD COMPLETED DATE/TIME: 01/16/2019 7:47 am REASON FOR STUDY: Z12.31 ROUTINE BILATERAL SCREENING Z12.31 ENCNTR SCREEN MAMMOGRAM FOR MALIGNANT N EOPLASM OF MICHELLE COMPARISON: [id number] EXAM PARAMETERS: Standard craniocaudal and mediolateral oblique views of each breast recorded using digital acquisition. Read with the assistance of CAD. .[facility] Version 9.2 LIMITATIONS: None. FINDINGS: Findings present which are benign by mammographic criteria. No suspicious masses, calcifi cations or architectural distortion. Pertinent benign findings: Fat necrosis status post reduction. Benign mammographic findings may include one or more of the following: Smooth masses, popcorn/rim/co arse calcifications, asymmetries, post-procedure changes, and lesions with long-standing stability. IMPRESSION: BENIGN MAMMOGRAPHIC FINDINGS. BIRADS 2 BREAST DENSITY: b. There are scattered areas of fibroglandular density. BIRAD: ASSESSMENT: 2 BENIGN FINDING(S) RECOMMENDATION: ROUTINE SCREENING COMMENT: The patient has been notified of the results by letter per SA requirements. Additional no tification policies are in place for contacting patient with suspicious or incomplete findings. Quality ID #[id number]: The [employer] recommends an annual screening mammogram for women aged 40 years or over. This facility utilizes a reminder system to ensure that all patients receive reminder letters, and/or direct phone calls for appointments. This includes reminders for routine scr eening mammograms, diagnostic mammograms, or other Breast Imaging Interventions when appropriate. Th is patient will be placed in the appropriate reminder system. TECHNICAL DOCUMENTATION: FINDING NUMBER: (1) ASSESSMENT: (1) JOB ID: [id number] [employer]- All Rights Reserved Reading location - IP/workstation name: [email or web address]
== END ==
LOC: WI 07:47
PROVIDERS: ATTEND Internal Medicine
DX: Z12.31 Encounter for screening mammogram for malignant neoplasm of breast (principal)
CPT/HCPCS: 77067

== ENCOUNTER 2019-11-12 20:51 | Emergency (ER) | payer MEDICARE, MEDICAID ==
[2019-11-12 21:40] LABS: ABSOLUTE EOSINOPHILS # (AUTO) 0.1 10^3/uL (0.0-0.6); ABSOLUTE LYMPHOCYTES (AUTO) 1.7 10^3/uL (0.5-4.7); ABSOLUTE MONOCYTES (AUTO) 0.5 10^3/uL (0.1-1.4); ABSOLUTE NEUT (AUTO) 2.8 10^3/uL (1.7-8.2); BASOPHILS % (AUTO) 0.6 % (0-2); EOSINOPHILS % (AUTO) 1.6 % (0-6); HEMOGLOBIN 12.4 g/dL (12.0-15.5); LYMPHOCYTES % (AUTO) 33.3 % (13-45); MEAN CORPUSCULAR HEMOGLOBIN 32.4 pg (27.0-33.4); MEAN CORPUSCULAR HGB CONC 34.5 g/dL (32.0-36.0); MEAN CORPUSCULAR VOLUME 94 fl (80-97); MONOCYTES % (AUTO) 9.9 % (3-13); PLATELET COUNT 267 10^3/uL (150-450); RED BLOOD COUNT 3.84 10^6/uL (3.72-5.28); RED CELL DISTRIBUTION WIDTH 13.5 % (11.5-14.0); SEGMENTED NEUTROPHILS % (AUTO) 54.6 % (42-78); TOTAL CELLS COUNTED % (AUTO) 100 %; WHITE BLOOD COUNT 5.1 10^3/uL (4.0-10.5)
--- NOTE | 2019-11-12 22:31 | EKG REPORT ---
SEVERITY:- NORMAL ECG - SINUS RHYTHM : Confirmed by: Iain Jones 12-Nov-2019 22:30:49
[2019-11-12] MEDS ORDERED: ONDANSETRON HCL INJ/PF 4 MG/2 ML SDV IV ONE (22:32)
[2019-11-12] MEDS ORDERED: MORPHINE SULFATE 10 MG/ML INJ IV ONE (22:33)
[2019-11-12] MEDS ORDERED: NITROGLYCERIN/D5W 50 MG/250 ML RTUINJ IV PRN (22:33)
--- NOTE | 2019-11-12 22:40 | ER Document Report ---
ED General - General Chief Complaint: Chest Pain Stated Complaint: CHEST PAIN Time Seen by Provider: 11/12/19 21:53 Primary Care Provider: TALA MORALES MD [Primary Care Provider] - Follow up as needed TRAVEL OUTSIDE OF THE [place] IN LAST 30 DAYS: No - HPI Notes: Chief complaint: Chest pain HPI: 58-year-old female with longstanding history of CAD presenting for evaluation of chest pain. Patient states she has had 9 previous stents at [facility]. She is followed locally by Dr. Jones. Patient is presently on aspirin and Plavix at home and states that around 6 PM today she had sudden onset of sharp retrosternal discomfort radiating up into her back and neck which is similar to pain she has had previously when she has had blockages. Mild dyspnea. No vomiting. No diaphoresis. - Related Data Allergies/Adverse Reactions: Sulfa (Sulfonamide Antibiotics) Allergy (Verified 06/20/17 11:12) Dye used in chemical stress test Allergy (Uncoded 06/20/17 13:00) Past Medical History - General Information source: Patient - Social History Smoking Status: Current Every Day Smoker Family History: DM, Hypertension, Other Patient has homicidal ideation: No - Past Medical History Cardiac Medical History: Reports: Hx Heart Attack - 1983, Hx Hypercholesterolemia, Hx Hypertension Pulmonary Medical History: Reports: Hx Asthma Denies: Hx Tuberculosis Renal/ Medical History: Denies: Hx Peritoneal Dialysis GI Medical History: Reports: Hx Gastroesophageal Reflux Disease Musculoskeletal Medical History: Reports Hx Arthritis Psychiatric Medical History: Reports: Hx Depression Past Surgical History: Reports: Hx Abdominal Surgery - intestinal, Hx Section, Hx Cholecystectomy, Hx Tubal Ligation. Denies: Hx Pacemaker - Immunizations Hx Diphtheria, Pertussis, Tetanus Vaccination: Yes Hx Pneumococcal Vaccination: 07/04/10 Review of Systems - Review of Systems Notes: Constitutional: Negative for fever. HENT: Negative for sore throat. Eyes: Negative for visual changes. Cardiovascular: As per HPI. Respiratory: As per HPI. Gastrointestinal: Negative for abdominal pain, vomiting or diarrhea. Genitourinary: Negative for dysuria. Musculoskeletal: Negative for back pain. Skin: Negative for rash. Neurological: Negative for headaches, weakness or numbness. 10 point ROS negative except as marked above and in HPI. Physical Exam - Vital signs Vitals: Temp 98.1 F 05/11/20 20:51 - Notes Notes: GENERAL: Well-developed well-nourished appearing anxious. SKIN: Good turgor no rashes. HEAD: Normocephalic atraumatic. EYES: PERRLA. EOMI. Conjunctivae and sclerae clear. EARS: CANALS AND TMS CLEAR. NOSE: CLEAR. MOUTH: Moist mucosa. Good dentition. No stridor or edema. No drooling. NECK: Supple. No masses or thyromegaly. No adenopathy. Carotids 2+ without bruits. No JVD. BACK: Symmetrical without tenderness. CHEST: Diffuse anterior chest wall tenderness. Respirations unlabored. Breath sounds clear and symmetrical. HEART: Regular rhythm. No murmur gallop or rub. ABDOMEN: Soft nontender without masses, organomegaly or rebound. Bowel sounds normally active. No bruits. GENITALIA: Deferred. EXTREMITIES: No edema. No calf tenderness. Cap refill less than 1.5 seconds. Dorsalis pedis and posterior tibial pulses 3+ and symmetrical. NEUROLOGICAL: GCS 15. Alert and oriented x3. Normal gait. Fluent speech. Cranial nerves II through XII intact. Sensorimotor and cerebellar normal. Normal tone. PSYCHIATRIC: Appropriate affect. Course - Vital Signs Vital signs: Temp Pulse Resp BP Pulse Ox 98.1 F 70 12 141/78 H 100 11/12/19 21:02 11/12/19 21:02 11/12/19 23:51 11/12/19 23:51 11/12/19 23:51 - Laboratory Result Diagrams: 11/12/19 21:27 11/12/19 21:27 Laboratory results interpreted by me: 11/12/19 11/12/19 21:27 21:27 APTT 36.0 H Glucose 121 H Creatine Kinase 144 H - EKG Interpretation by Me Additional EKG results interpreted by me: 11/12/19 22:38 Twelve-lead EKG from 2056 hrs. reviewed contemporaneously by me showing normal sinus rhythm with a rate of 74. Normal intervals. Normal QRS axis of +48 degrees. She has no acute ST/T wave changes. Discharge - Discharge Clinical Impression: Acute coronary syndrome Condition: Fair Disposition: [facility] Referrals: TALA MORALES MD [Primary Care Provider] - Follow up as needed
--- NOTE | 2019-11-12 22:46 | RADIOLOGY REPORT (SQ) ---
EXAM DESCRIPTION: AP portable radiograph of the chest CLINICAL HISTORY: 58 years Female, cp COMPARISON: Two views of the chest 09/12/2017 FINDINGS: Lungs: Lungs are clear. No pneumonia or edema. No pneumothorax or pleural effusion. Mediastinum: Cardiac and mediastinal silhouette are normal. Bones: Osseous structures are normal. IMPRESSION: No acute process. No significant interval change.
[2019-11-12 22:52] LABS: ALBUMIN 4.4 g/dL (3.5-5.0); ALKALINE PHOSPHATASE 88 U/L (38-126); ANION GAP 8 (5-19); ASPARTATE AMINO TRANSFERASE 21 U/L (14-36); BILIRUBIN,DIRECT 0.1 mg/dL (0.0-0.4); BILIRUBIN,TOTAL 0.7 mg/dL (0.2-1.3); BLOOD UREA NITROGEN 11 mg/dL (7-20); CALCIUM 9.8 mg/dL (8.4-10.2); CARBON DIOXIDE 27 mmol/L (22-30); CHLORIDE 103 mmol/L (98-107); CREATINE KINASE 144 U/L (30-135); GLUCOSE 121 mg/dL (75-110); POTASSIUM 3.7 mmol/L (3.6-5.0); TOTAL PROTEIN 8.2 g/dL (6.3-8.2)
[2019-11-12 22:55] LABS: INTERNATIONAL RATION (INR) 1.11; PROTHROMBIN TIME 14.3 SEC (11.4-15.4)
[2019-11-12 23:03] LABS: CREATINE KINASE MB 0.94 ng/mL (<4.55)
[2019-11-12 23:04] LABS: TROPONIN I < 0.012 ng/mL
[2019-11-12] MEDS ORDERED: ENOXAPARIN SODIUM INJ 100 MG/1 ML DISP.SYRIN SUBCUT ONE (23:39)
[2019-11-13 03:17] VITALS: BP 116/62
== END 2019-11-13 03:39 | disposition short-term general hospital (02) ==
LOC: ER 20:51
DX: I24.9 Acute ischemic heart disease, unspecified (principal); R07.9 Chest pain, unspecified; I25.10 Atherosclerotic heart disease of native coronary artery without angina pectoris; Z79.82 Long term (current) use of aspirin; Z79.02 Long term (current) use of antithrombotics/antiplatelets; R06.00 Dyspnea, unspecified; Z88.2 Allergy status to sulfonamides; Z88.8 Allergy status to other drugs, medicaments and biological substances; F17.200 Nicotine dependence, unspecified, uncomplicated; I25.2 Old myocardial infarction; I10 Essential (primary) hypertension; J45.909 Unspecified asthma, uncomplicated
CPT/HCPCS: 93005; 99285; 96372; 96375; 96365; 96366; 36415; 82553; 82550; 85025; 85610; 85730; 80053; 84484; 83880; 71045; 93010; J2270; J2405; J3490; J1650

== ENCOUNTER → 2020-02-15 | Outpatient (CLI) | payer MEDICARE, MEDICAID ==
--- NOTE | 2020-02-15 09:41 | RADIOLOGY REPORT (SQ) ---
EXAM DESCRIPTION: U/S ABDOMEN LIMITED W/O DOP IMAGES COMPLETED DATE/TIME: 02/15/2020 9:20 am REASON FOR STUDY: R10.10 UPPER ABDOMINAL PAIN, UNSPECIFIED R10.10 UPPER ABDOMINAL PAIN, UNSPECIFIED COMPARISON: 10/31/2017 TECHNIQUE: Dynamic and static grayscale images acquired of the abdomen and recorded on PACS. Additio nal selected color Doppler and spectral images recorded. LIMITATIONS: None. FINDINGS: PANCREAS: No masses. Visualized pancreatic duct normal caliber. LIVER: No masses. Echotexture normal. LIVER VASCULATURE: Normal directional flow of the main portal vein and hepatic veins. GALLBLADDER: No stones. Normal wall thickness. No pericholecystic fluid. ULTRASOUND-DETECTED THRASHER'S SIGN: Negative. INTRAHEPATIC DUCTS AND COMMON DUCT: The common bile duct is slightly dilated measured 6.9 mm. AORTA: No aneurysm. RIGHT KIDNEY: Normal size. Normal echogenicity. No solid or suspicious masses. No hydronephrosis. No calcifications. PERITONEAL AND RIGHT PLEURAL SPACE: No ascites or effusions. OTHER: No other significant findings. IMPRESSION: Mild dilatation of the common bile duct measured 6.9 mm. No other significant findings. Further evaluation with MRCP may be helpful if clinically indicated. TECHNICAL DOCUMENTATION: JOB ID: [id number] [employer]- All Rights Reserved Reading location - IP/workstation name: [email or web address]
== END ==
LOC: RAD 08:58
PROVIDERS: ATTEND Internal Medicine
DX: R10.10 Upper abdominal pain, unspecified (principal)
CPT/HCPCS: 76705